=== PATIENT | female | born 1965 | race African-American/Black ===

== ENCOUNTER 2020-06-26 22:35 | Emergency (ER) | payer MEDICARE, MEDICAID ==
[~2020-06-26] VITALS: Ht 154.9 cm; Wt 104.0 kg
[2020-06-26] MEDS ORDERED: TETANUS, DIPHTHERIA, PERTUSSIS VAC/PF 0.5ML (>7YR OLD) IM ONE (23:30)
[2020-06-27] MEDS ORDERED: MORPHINE SULFATE 4 MG/ML CPJ (NOT FOR IM USE) IV ONE (00:15)
[2020-06-27] MEDS ORDERED: ASPIRIN 81MG TABLET PO ONE (00:15)
[2020-06-27] MEDS ORDERED: KETOROLAC 60MG/2ML VIAL IM ONE (00:15)
[2020-06-27 02:39] VITALS: BP 151/80
== END 2020-06-27 02:42 | disposition home or self-care (01) ==
LOC: ER 22:35
DX: S00.83XA Contusion of other part of head, initial encounter (principal); S40.211A Abrasion of right shoulder, initial encounter; E04.1 Nontoxic single thyroid nodule; W10.9XXA Fall (on) (from) unspecified stairs and steps, initial encounter; Y93.89 Activity, other specified; Y92.9 Unspecified place or not applicable; Z88.8 Allergy status to other drugs, medicaments and biological substances
CPT/HCPCS: 70450; 70486; 72125; 73030; 81025; 90471; 90715; 93005; 96372; 99285; J1885